=== PATIENT | female | born 2000 | race African-American/Black ===

== ENCOUNTER 2021-09-23 15:03 | Outpatient (CLI) | payer OTHER | END 2021-09-23 15:04 | disposition home or self-care (01) | LOC: CSHULT 15:03 | PROVIDERS: ATTEND Family Medicine | DX: Z34.82 Encounter for supervision of other normal pregnancy, second trimester (principal); Z3A.27 27 weeks gestation of pregnancy | CPT/HCPCS: 76805 ==